=== PATIENT | male | born 1990 | race Caucasian/White ===

== ENCOUNTER 2018-04-12 14:04 | Emergency (ER) | payer BC, SELFPAY ==
[2018-04-12 14:10] VITALS: BP 136/90; PULSE 90; RESP 16; TEMP 36.8; O2SAT 96
--- NOTE | 2018-04-12 15:19 | DI.RAD_ITS ---
SYMPTOM/DIAGNOSIS: THUMB PAIN RIGHT HAND: No fracture or dislocation is seen. IMPRESSION: Negative right hand.
--- NOTE | 2018-04-12 15:19 | DI.RAD_ITS ---
SYMPTOM/DIAGNOSIS: THUMB PAIN RIGHT WRIST: Four views including navicular view were performed. No fracture or dislocation is seen. The navicular appears intact. IMPRESSION: Negative right wrist.
[2018-04-12] MEDS: Ibuprofen 600 MG TAB PO (15:29)
[2018-04-12] MEDS: Acetaminophen 500 MG TAB 1000 MG PO (15:30)
--- NOTE | 2018-04-12 15:55 | W.ED.GENAD ---
Discharge Plan Disposition Patient Disposition: HOME Condition: Stable Discharge Details Chief Complaint: GenMedical Clinical Impression: Pain of right thumb Primary Care Provider: Gwen Silva ED Provider: Arnoldo Esquivel Home Meds and New Rx's Prescriptions: No Action No Known Home Meds RF: 0 Discharge Instructions Instructions: Tendinitis (ED), RICE Therapy (ED) Additional Instructions: Please wear the provided by brace over the next week and continue to use 600 mg of ibuprofen with 650-1000 mg of Tylenol every 6 hours as needed for discomfort. If not improving over the next week please contact orthopedic office for reassessment. Feel free to return to the emergency department for any new or significant worsening of symptoms. Referrals: Arias Prescott MD [ [facility] - Vivek Cortez MD [ [facility]] - Flavio Gómez MD [ [facility]] - Discharge Data Discharge Date/Time-TO BE ENTERED AT DEPARTURE: 04/12/18 16:35 Medical Decision Making Patient presenting to the emergency department for chief complaint of right thumb pain. Patient states that this started over the past day. 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 Physical exam shows swelling to the base of the right thumb with tenderness also to the base of the thumb and the meta carpal with very mild tenderness to the anatomical snuffbox along with significant pain with axial load of the thumb. Given patient's report of trauma that he states was not evaluated or imaged and no recent pain in the same area plan to perform radiological imaging to see if there was a fracture that occurred with the initial injury. Ending results patient given acetaminophen and Motrin. Review of radiological imaging shows no acute fracture or dislocation. Patient placed in a thumb spica splint and informed to continue to rest thumb and wrist and take NSAIDs. Patient did state improvement after being placed in thumb spica splint. Patient informed to follow-up with orthopedist for reassessment if not improving. Return precautions were also discussed. After discussion of diagnosis and plan of care patient has no further needs, questions, or concerns and states clear understanding to return to the emergency department for any worsening symptoms. HPI General Mode of arrival: ambulatory. Date/Time Provider Initiated Documentation: 04/12/18 14:26. Limitations to Documentation: no limitations. Information obtained by: patient and RN notes reviewed. History of Present Illness 27 year old M presents to the emergency department with the chief complaint of right thumb pain, described as severe, with intensity rated at 10. Quality is described as sharp, and is localized to the right and upper extremity. Patient started experiencing this day(s) (1) and it has been constant. Patient did receive the following treatments prior to arrival, NSAID Related Data Home Medications Medication Instructions Recorded Confirmed Unknown [No Known Home Meds] 04/12/18 04/12/18 Allergies Allergy/AdvReac Type Severity Reaction Status Date / Time bupropion [From Wellbutrin] Allergy Intermediate Unverified 04/12/18 14:10 sertraline Allergy Intermediate Unverified 04/12/18 14:10 General Stated Complaint: GenMedical TIMOTHY: 5 Review of Systems Constitutional Denies chills and Denies fever(s) Musculoskeletal Reports as per HPI, Reports joint swelling, Reports limited range of motion, Reports numbness and Denies stiffness Integumentary/Breasts Denies rash and Denies wounds Neurologic Reports numbness Exam Const General: cooperative and no acute distress Orientation: alert, awake and oriented x3 Resp Effort & Inspection: normal respiratory effort and able to speak in complete sentences Cardio Rate: regular rate Rhythm: regular rhythm Extrem Right upper extremity: wrist Details: tenderness Location: of the anatomic snuffbox (mild), normal ROM, radial pulse present, Tinel's negative and Phalen's negative; no swelling and hand Details: normal capillary refill, neuromotor exam normal, neurosensory exam normal, tendon exam normal, tenderness Location: of the thumb Location: at the thenar eminence, at the MCP joint and on the palmar aspect, vascular exam Details: radial pulse present and normal capillary refill and swelling Location: of the thumb Location: at the thenar eminence Course Vital Signs Temperature 36.8 C 04/12/18 14:10 Pulse 90 04/12/18 14:10 Respiratory Rate 16 04/12/18 14:10 Blood Pressure 136/90 04/12/18 14:10 Pulse Oximetry 96 04/12/18 14:10 Temperature 36.8 C 04/12/18 14:10 Temperature Source Temporal Artery Scan 04/12/18 14:10 Pulse 90 04/12/18 14:10 Respiratory Rate 16 04/12/18 14:10 Blood Pressure 136/90 04/12/18 14:10 Blood Pressure Position Sitting 04/12/18 14:10 Pulse Oximetry 96 04/12/18 14:10 Oxygen Delivery Method Room Air 04/12/18 14:10 Oxygen Flow Rate 0 04/12/18 14:10 Pain Level 4 04/12/18 15:30
--- NOTE | 2018-04-12 16:01 | ED.GENADUL_ITS ---
Discharge Plan Disposition Patient Disposition: HOME Condition: Stable Discharge Details Chief Complaint: GenMedical Clinical Impression: Pain of right thumb Primary Care Provider: Gwen Silva ED Provider: Arnoldo Esquivel Home Meds and New Rx's Prescriptions: No Action No Known Home Meds RF: 0 Discharge Instructions Instructions: Tendinitis (ED), RICE Therapy (ED) Additional Instructions: Please wear the provided by brace over the next week and continue to use 600 mg of ibuprofen with 650-1000 mg of Tylenol every 6 hours as needed for discomfort. If not improving over the next week please contact orthopedic office for reassessment. Feel free to return to the emergency department for any new or significant worsening of symptoms. Referrals: Arias Prescott MD [ [facility]FF [facility]YSIC[facility]] - Vivek Cortez MD [ [facility]FF [facility]YSICIAN] - Flavio Gómez MD [ [facility]FF [facility]YSICIAN] - Discharge Data Discharge Date/Time-TO BE ENTERED AT DEPARTURE: 04/12/18 16:35 Medical Decision Making Patient presenting to the emergency department for chief complaint of right brooke mb pain. Patient states that this started over the past day. 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 Physical exam shows swelling to the base of the right thumb with tenderness also to the base of the thumb and the meta carpal with very mild tenderness to the anatomical snuffbox along with significant pain with axial load of the thumb. Given patient's report of trauma that he states was not evaluated or imaged and no recent pain in the same area plan to perform radiological imaging to see if there was a fracture that occurred with the initial injury. Ending results patient given acetaminophen and Motrin. Review of radiological imaging shows no acute fracture or dislocation. Patient placed in a thumb spica splint and informed to continue to rest thumb and wrist and take NSAIDs. Patient did state improvement after being placed in thumb spica splint. Patient informed to follow-up with orthopedist for reassessment if not improving. Return precautions were also discussed. After discussion of diagnosis and plan of care patient has no further needs, questions, or concerns and states clear understanding to return to the emergency department for any worsening symptoms. HPI General Mode of arrival: ambulatory . Date/Time Provider Initiated Documentation: 04/12/18 14:26 . Limitations to Documentation: no limitations . Information obtained by: patient and RN notes reviewed . History of Present Illness 27 year old M presents to the emergency department with the chief complaint of right thumb pain, described as severe, with intensity rated at 10. Quality is described as sharp, and is localized to the right and upper extremity. Patient started experiencing this day(s) (1) and it has been constant. Patient did receive the following treatments prior to arrival, NSAID Related Data Home Medications Medication Instructions Recorded Confirmed Unknown [No Known Home Meds] 04/12/18 04/12/18 Allergies Allergy/AdvReac Type Severity Reaction Status Date / Time bupropion [From Wellbutrin] Allergy Intermediate Unverified 04/12/18 14:10 sertraline Allergy Intermediate Unverified 04/12/18 14:10 General Stated Complaint: GenMedical TIMOTHY: 5 Review of Systems Constitutional Denies chills and Denies fever(s) Musculoskeletal Reports as per HPI, Reports joint swelling, Reports limited range of motion, Reports numbness and Denies stiffness Integumentary/Breasts Denies rash and Denies wounds Neurologic Reports numbness Exam Const General: cooperative and no acute distress Orientation: alert, awake and oriented x3 Resp Effort & Inspection: normal respiratory effort and able to speak in complete sentences Cardio Rate: regular rate Rhythm: regular rhythm Extrem Right upper extremity: wrist Details: tenderness Location: of the anatomic snuffbox (mild), normal ROM, radial pulse present, Tinel's negative and Phalen's negative; no swelling and hand Details: normal capillary refill, neuromotor exam normal, neurosensory exam normal, tendon exam normal, tenderness Location: of the thumb Location: at the thenar eminence, at the MCP joint and on the palmar aspect, vascular exam Details: radial pulse present and normal capillary refill and swelling Location: of the thumb Location: at the thenar eminence Course Vital Signs Temperature 36.8 C 04/12/18 14:10 Pulse 90 04/12/18 14:10 Respiratory Rate 16 04/12/18 14:10 Blood Pressure 136/90 04/12/18 14:10 Pulse Oximetry 96 04/12/18 14:10 Temperature 36.8 C 04/12/18 14:10 Temperature Source Temporal Artery Scan 04/12/18 14:10 Pulse 90 04/12/18 14:10 Respiratory Rate 16 04/12/18 14:10 Blood Pressure 136/90 04/12/18 14:10 Blood Pressure Position Sitting 04/12/18 14:10 Pulse Oximetry 96 04/12/18 14:10 Oxygen Delivery Method Room Air 04/12/18 14:10 Oxygen Flow Rate 0 04/12/18 14:10 Pain Level 4 04/12/18 15:30
--- NOTE | 2018-04-12 16:17 | DI.VRAD_ITS ---
EXAM: XR Right Hand Complete, 3 or more Views EXAM DATE/TIME: 04/12/2018 3:22 PM CLINICAL HISTORY: 27 years old, male; Pain; Other: Thumb pain TECHNIQUE: XR Right hand 3 or more views. COMPARISON: No relevant prior studies available. FINDINGS: Bones/joints: Normal. Soft tissues: Normal. IMPRESSION: No acute findings. Dictated and Authenticated by: Harjinder Do MD. Ordering:JONAH Mclaughlin MD
--- NOTE | 2018-04-12 16:18 | DI.VRAD_ITS ---
EXAM: XR Right Wrist Complete, 3 or more Views EXAM DATE/TIME: 04/12/2018 3:41 PM CLINICAL HISTORY: 27 years old, male; Pain; Other: Snuffbox and axial load pain of thumb TECHNIQUE: XR Right wrist 3 or more views. COMPARISON: No relevant prior studies available. FINDINGS: Bones/joints: Normal. Soft tissues: Normal. IMPRESSION: No acute findings. Dictated and Authenticated by: Harjinder Do MD. Ordering:JONAH Mclaughlin MD
== END 2018-04-12 16:35 | disposition home or self-care (01) ==
PROVIDERS: Emergency Provider Nurse Practitioner Family; PCP Physician Assistant
DX: M79.644 Pain in right finger(s) (principal); X58.XXXA Exposure to other specified factors, initial encounter
CPT/HCPCS: 29125; 99284; 73110; 73130; 99283; L3908